=== PATIENT | male | born 1945 | race Caucasian/White ===

== ENCOUNTER 2017-09-27 01:25 | Day surgery (SDC) | payer MEDICARE ==
[~2017-09-27] VITALS: Ht 180.3 cm; Wt 78.9 kg
[~2017-09-27 01:25] MED LIST: NO HOME MEDS; PRAV20TA65 PO; PROB500T31 PO; SIMV-49 PO
--- NOTE | 2017-09-27 05:44 | Post Operative Progress Note ---
Post Operative Progress Note Date: Sep 27, 2017 Time: 10:46 Surgeon: gregg Anesthesia: dr flores Pre-Op Diagnosis: personal history of polyps Post-Op Diagnosis: sigmoid diverticulosis Procedure(s): colonoscopy GERARDO SINGLETARY MD Sep 27, 2017 05:44
--- NOTE | 2017-09-27 05:45 | Short(Outpt) Discharge Summary ---
Discharge Summary Reason for Hosp/Final Diag: (1) Encounter for colonoscopy due to history of adenomatous colonic polyps Hospital Course & Plan: sigmoid diverticulosis Departure Discharge to: Home Discharge Instructions Home Meds Reported Medications Simvastatin (SIMVASTATIN) 20 Mg Tablet, 5 MG PO QDAY, TAB 09/24/17 Probenecid (PROBENECID) 500 Mg Tablet, 500 MG PO BID 09/24/17 Discontinued Reported Medications Pravastatin Sodium (PRAVACHOL) 20 Mg Tablet, 5 MG PO QDAY, TAB 09/24/17 [No Home Meds] No Conflict Check 05/03/12 Diet: High Fiber Activity: As Tolerated GERARDO SINGLETARY MD Sep 27, 2017 05:45
[2017-09-27] MEDS ORDERED: PROPOFOL EMUL(*) 10MG/ML 20 ML 20 ML ONE (07:13)
[2017-09-27 09:22] VITALS: BP 151/100
[2017-09-27] MEDS ORDERED: MIDAZOLAM 2 MG/2 ML VIAL IVP PRN (09:35)
[2017-09-27] MEDS ORDERED: LIDOCAINE/SOD BICARB 8.4% SYR ID ONE (09:35)
[2017-09-27] MEDS ORDERED: NORMOSOL R SOLN(*) 1000 ML BAG 1,000 ML IV PRN (09:35)
[2017-09-27 10:45] VITALS: BP 119/90
[2017-09-27 10:59] VITALS: BP 124/103
[2017-09-27 11:22] VITALS: BP 136/103
[2017-09-27 11:32] VITALS: BP 138/97
[2017-09-27 11:34] VITALS: BP 150/105
--- NOTE | 2017-09-27 18:43 | OPERATIVE REPORT 1 ---
EVENT DATE: September 27, 2017 SURGEON: Bandar Joel MD ANESTHESIOLOGIST: Laci Cruz MD ANESTHESIA: Sedation. PREOPERATIVE DIAGNOSIS Personal history of polyps. POSTOPERATIVE DIAGNOSIS Sigmoid diverticulosis. PROCEDURE PERFORMED Colonoscopy. DESCRIPTION OF PROCEDURE The patient was placed in the left lateral decubitus position and given intravenous sedation. The rectal exam was unremarkable. A flexible colonoscope was inserted and advanced to the cecum. The right colon especially had quite a bit of particulate matter that plugged our scope. We were unable to get complete clearing of the cecum, but we did get visualization of most of it. No abnormalities were noted. The right colon had some debris, but again, we were able to irrigate and move some of this around and get good visualization. No abnormalities were noted in the right colon, transverse, or descending colon. In the sigmoid colon, he had multiple diverticula. No evidence of diverticulitis. The rectum was normal. The scope was retroflexed, and that appeared to be normal. The patient will require repeat colonoscopy in five years because of the personal history of polyps. [email or web address]
== END 2017-09-27 11:47 | disposition home or self-care (01) ==
LOC: OR 01:25
PROVIDERS: ATTEND Surgery
DX: Z12.11 Encounter for screening for malignant neoplasm of colon (principal); K57.30 Diverticulosis of large intestine without perforation or abscess without bleeding; Z86.010 Personal history of colon polyps
CPT/HCPCS: 00812; G0121; J2704

== ENCOUNTER → 2019-01-30 | Outpatient (CLI) | payer MEDICARE ==
--- NOTE | 2019-01-30 14:23 | RADIOLOGY IMAGING REPORT ---
FACILITY: [facility] - [place] PATIENT NAME: Raymon Nascimento : 1945 MR: [id number] V: [id number] EXAM DATE: ORDERING PHYSICIAN: CHUCK CARPENTER TECHNOLOGIST: Location: [facility] - [place] Patient: Raymon Nascimento : 1945 Visit/Account:[id number] Date of Sevice: 01/30/2019 SHOULDER MIN 2 VIEWS RIGHT HISTORY: Right shoulder pain x6 months. No known injury. ADDITIONAL HISTORY: None. COMPARISON: None. FINDINGS: 3 views were obtained of the right shoulder. There is mild narrowing of the inferior margin of the g lenohumeral joint with small marginal osteophytes. Subacromial space is mildly narrowed secondary to osteophytes. There is also a mildly downsloping acromion. These findings could be contributing to an impingement type syndrome. AC joint is narrowed and there are small osteophytes projecting off th e inferior margin of the clavicle. There is no evidence of acute fracture or subluxation. Bony mineralization is normal. No lytic or sclerotic lesions identified. No soft tissue calcifications. IMPRESSION: 1. Mild degenerative changes in the glenohumeral joint. 2. Mild narrowing the subacromial space secondary to osteophytes and downsloping acromion which coul d be contributing to an impingement type syndrome, clinically correlate. 3. No evidence of acute osseous abnormality. Report Dictated By: Kathy Benson MD at 01/30/2019 2:09 PM Report E-Signed By: Kathy Benson MD at 01/30/2019 2:12 PM WSN:[email or web address]
== END ==
LOC: RAD 10:45
PROVIDERS: ATTEND Family Medicine
DX: M19.011 Primary osteoarthritis, right shoulder (principal)